=== PATIENT | female | born 1955 | race Caucasian/White ===

== ENCOUNTER 2024-07-23 16:45 | Emergency (ER) | payer BC, MEDICARE, SELFPAY ==
[2024-07-23 16:50] VITALS: BP 156/78; PULSE 56; RESP 16; TEMP 36.8; O2SAT 97; BMI 45.1
--- NOTE | 2024-07-23 17:28 | XRR_ITS ---
PROCEDURE INFORMATION: Exam: XR Left Tibia and Fibula Exam date and time: 07/23/2024 5:57 PM Age: 68 years old Clinical indication: Injury or trauma; Fall; Blunt trauma; Lower leg; Left; Additional info: Traumatic distal gr pain and bruising TECHNIQUE: Imaging protocol: Radiologic exam of the left tibia and fibula. Views: 2 views. COMPARISON: No relevant prior studies available. FINDINGS: Bones/joints: No fracture or acute osseous abnormality is seen about the left tibia or fibula. Knee and ankle joints appear maintained with mild degenerative change of the knee. Soft tissues: No significant focal soft tissue abnormality. XR/XR tibia fibula LT 2V [id number] IMPRESSION: No fracture or acute osseous abnormality.
--- NOTE | 2024-07-23 17:38 | ED_ITS ---
HPI - Extremity Problem General: Chief complaint: Extremity Injury, Lower Stated complaint: left leg in pain Time Seen by Provider: 07/23/24 17:27 History of Present Illness: 68-year-old female who presents emergenc y room with left gr pain. She says she hit her lower gr on a metal step of her camper. She is able to bear weight but is quite painful. She has some bruising in the area. No obvious deformity. Related Data Allergies Allergy/AdvReac Type Severity Reaction Status Date / Time metronidazole [From Flagyl] Allergy ADR-Abdominal Verified 07/23/24 16:53 Pain Review of Systems Narrative: Constitutional symptoms: Negative except as documented in HPI. Skin symptoms: Negative except as documented in HPI. Eye symptoms: Negative except as documented in HPI. ENMT symptoms: Negative except as documented in HPI. Respiratory symptoms: Negative except as documented in HPI. Cardiovascular symptoms: Negative except as documented in HPI. Gastrointestinal symptoms: Negative except as documented in HPI. Genitourinary symptoms: Negative except as documented in HPI. Musculoskeletal symptoms: Negative except as documented in HPI. Neurologic symptoms: Negative except as documented in HPI. Psychiatric symptoms: Negative except as documented in HPI. Endocrine symptoms: Negative except as documented in HPI. Physical Exam Narrative: EXAM NARRATIVE: General: Alert, no acute distress. Skin: warm and dry Head: Normocephalic Neck: Trachea midline Eye: Extraocular movements are intact. Ears, nose, mouth and throat: Oral mucosa moist Respiratory: Respirations are non-labored Musculoskeletal: Normal ROM, some bruising over the left lower gr anteriorly. Neurological: Alert and oriented, No focal neurological deficit observed. Psychiatric: Cooperative, appropriate mood & affect. Course Vital Signs: Vital signs: Vital Signs Temperature 98.3 F 07/23/24 16:50 Pulse Rate 56 L 07/23/24 16:50 Respiratory Rate 16 07/23/24 16:50 Blood Pressure 156/78 07/23/24 16:50 Pulse Oximetry 97 07/23/24 16:50 Oxygen Delivery Me thod Room Air 07/23/24 16:50 MDM - Extremity (Nontraumatic) Medical Decision Making X-ray of the tibia and fibula: There is no fracture. Films were interpreted by myself the emergency room provider and pending final radiology review. Assessment and plan: Contusion of the lower extremity - Discharged home - Discussed plan with patient. Answered any questions. - Evaluation and treatment of this problem were appropriate in the emergency setting. XR interpretation done by ED provider, pending radiology final review Discharge Plan Discharge Patient Disposition: Home Clinical Impression: Contusion of lower extremity Condition: Stable Discharge Orders: Discharge ED (Routine); Ordered 07/23/24 Ordered By: Margarita Forrest Discharge Diet: Usual diet Discharge Activity: Increase activity as tolerated Patient Instructions: Contusion in Adults (ED) Activity Restrictions/Additional Instructions: Thank you for choosing [facility] for your healthcare needs today. Please realize this is an emergency room and that we are providing you with a medical screening exam and this may not be complete and all inclusive of all the testing and or work up that you may need to determine your ailment or severity of your illness. You have been screened and evaluated and felt safe for discharge. Health conditions do change or evolve sometimes and as such it is important that you follow up with your Primary Doctor to be re checked, 3-5 days is a general good time frame for follow up. You are always welcome to return to the ED for re assessment if your symptoms are worsening or you have new concerns Coding Level of Care Code ED [employer] for Radha Hernandez
[2024-07-23 18:28] VITALS: BP 152/78; PULSE 49; RESP 18; O2SAT 93
== END 2024-07-23 18:29 | disposition home or self-care (01) ==
PROVIDERS: Emergency Provider Emergency Medicine
DX: S80.12XA Contusion of left lower leg, initial encounter (principal); W22.8XXA Striking against or struck by other objects, initial encounter
CPT/HCPCS: 73590; 99283